=== PATIENT | female | born 1940 | race Hispanic/Latino ===

== ENCOUNTER → 2018-05-20 | Outpatient (CLI) | payer MEDICARE ==
[~2018-05-20] MED LIST: GABA-533 PO; MAGN250T10 PO; MULT1CAP32 PO; POTA-79 PO; VITAMIN D PO
== END | disposition home or self-care (01) ==
LOC: RAH 08:58
PROVIDERS: ATTEND Physical Medicine & Rehabilitation
DX: M85.88 Other specified disorders of bone density and structure, other site (principal); M47.896 Other spondylosis, lumbar region; M43.26 Fusion of spine, lumbar region; M48.061 Spinal stenosis, lumbar region without neurogenic claudication; I11.0 Hypertensive heart disease with heart failure; I50.22 Chronic systolic (congestive) heart failure; E11.9 Type 2 diabetes mellitus without complications; E78.5 Hyperlipidemia, unspecified; I48.0 Paroxysmal atrial fibrillation; I25.10 Atherosclerotic heart disease of native coronary artery without angina pectoris
CPT/HCPCS: 72114

== ENCOUNTER → 2018-09-20 | Outpatient (CLI) | payer MEDICARE ==
[~2018-09-20] MED LIST changes: +GADODIAMIDE 5 MMOL/10 ML VIAL 5 MMOL/10 ML ML IV ONE
== END | disposition home or self-care (01) ==
LOC: RAH 10:00
PROVIDERS: ATTEND Physical Medicine & Rehabilitation
DX: M47.26 Other spondylosis with radiculopathy, lumbar region (principal); M48.061 Spinal stenosis, lumbar region without neurogenic claudication; M51.16 Intervertebral disc disorders with radiculopathy, lumbar region
CPT/HCPCS: 72158; A9579

== ENCOUNTER → 2018-10-08 | Outpatient (CLI) | payer MEDICARE ==
[~2018-10-08] MED LIST changes: -GADODIAMIDE 5 MMOL/10 ML VIAL 5 MMOL/10 ML ML IV ONE
== END | disposition home or self-care (01) ==
LOC: RAH 14:55
PROVIDERS: ATTEND Physical Medicine & Rehabilitation
DX: M25.551 Pain in right hip (principal)
CPT/HCPCS: 73502

== ENCOUNTER → 2019-01-22 | Outpatient (CLI) | payer MEDICARE | END | disposition home or self-care (01) | LOC: RAH 14:18 | PROVIDERS: ATTEND Internal Medicine | DX: R10.2 Pelvic and perineal pain (principal); Z90.710 Acquired absence of both cervix and uterus | CPT/HCPCS: 76856 ==

== ENCOUNTER → 2019-06-30 | Outpatient (CLI) | payer MEDICARE | END | disposition home or self-care (01) | LOC: RAH 13:20 | PROVIDERS: ATTEND Physical Medicine & Rehabilitation | DX: M48.061 Spinal stenosis, lumbar region without neurogenic claudication (principal); M47.26 Other spondylosis with radiculopathy, lumbar region | CPT/HCPCS: 72131 ==

== ENCOUNTER → 2020-05-04 | Outpatient (CLI) | payer MEDICARE | END | disposition home or self-care (01) | LOC: RAH 12:44 | PROVIDERS: ATTEND Physical Medicine & Rehabilitation | DX: M25.871 Other specified joint disorders, right ankle and foot (principal); M25.471 Effusion, right ankle | CPT/HCPCS: 73721 ==

== ENCOUNTER → 2021-03-11 | Outpatient (CLI) | payer MEDICARE | END | disposition home or self-care (01) | LOC: RAH 12:02 | PROVIDERS: ATTEND Physical Medicine & Rehabilitation | DX: M20.12 Hallux valgus (acquired), left foot (principal); M85.872 Other specified disorders of bone density and structure, left ankle and foot | CPT/HCPCS: 73630 ==

== ENCOUNTER → 2021-03-16 | Outpatient (CLI) | payer MEDICARE | END | disposition home or self-care (01) | LOC: RAH 03-15 12:26 | PROVIDERS: ATTEND Internal Medicine | DX: M16.12 Unilateral primary osteoarthritis, left hip (principal); M25.559 Pain in unspecified hip; M85.88 Other specified disorders of bone density and structure, other site; Z98.890 Other specified postprocedural states | CPT/HCPCS: 73502 ==

== ENCOUNTER → 2021-03-28 | Outpatient (CLI) | payer MEDICARE | END | disposition home or self-care (01) | LOC: RAH 09:01 | PROVIDERS: ATTEND Internal Medicine | DX: S83.241A Other tear of medial meniscus, current injury, right knee, initial encounter (principal); S83.207A Unspecified tear of unspecified meniscus, current injury, left knee, initial encounter; M23.92 Unspecified internal derangement of left knee; M17.11 Unilateral primary osteoarthritis, right knee; X58.XXXA Exposure to other specified factors, initial encounter; Y93.89 Activity, other specified; Y92.89 Other specified places as the place of occurrence of the external cause; Y99.8 Other external cause status | CPT/HCPCS: 73721 ==

== ENCOUNTER → 2021-08-02 | Outpatient (CLI) | payer MEDICARE ==
[~2021-08-02] MED LIST changes: +GADOTERATE MEGLUMINE 10 MMOL/20 ML VIAL IV ONE
== END | disposition home or self-care (01) ==
LOC: RAH 08:41
PROVIDERS: ATTEND Physical Medicine & Rehabilitation
DX: S86.302A Unspecified injury of muscle(s) and tendon(s) of peroneal muscle group at lower leg level, left leg, initial encounter (principal); M79.89 Other specified soft tissue disorders; M89.8X6 Other specified disorders of bone, lower leg; M85.662 Other cyst of bone, left lower leg; Z88.6 Allergy status to analgesic agent; Z88.8 Allergy status to other drugs, medicaments and biological substances; X58.XXXA Exposure to other specified factors, initial encounter; Y93.89 Activity, other specified; Y92.89 Other specified places as the place of occurrence of the external cause; Y99.8 Other external cause status
CPT/HCPCS: 73720; A9575

== ENCOUNTER → 2022-01-12 | Outpatient (CLI) | payer MEDICARE ==
[~2022-01-12] MED LIST changes: -GADOTERATE MEGLUMINE 10 MMOL/20 ML VIAL IV ONE
== END | disposition home or self-care (01) ==
LOC: RAH 14:24
PROVIDERS: ATTEND Internal Medicine
DX: E03.8 Other specified hypothyroidism (principal); E03.9 Hypothyroidism, unspecified; E04.1 Nontoxic single thyroid nodule
CPT/HCPCS: 76536

== ENCOUNTER → 2023-02-09 | Outpatient (CLI) | payer MEDICARE ==
[~2023-02-09] MED LIST changes: +POTA-364 PO; -POTA-79 PO
[2023-02-09 09:36] LABS: BASOPHILS % (AUTO) 1.1 % (0.0-5.0); EOSINOPHILS % (AUTO) 2.9 % (0.0-8.0); HEMATOCRIT 43.4 % (36-48); LYMPHOCYTES % (AUTO) 24.5 % (21.0-51.0); MEAN CORPUSCULAR HEMOGLOBIN 30.3 pg (27.0-33.0); MEAN CORPUSCULAR VOLUME 94.6 fL (79-99); MONOCYTES % (AUTO) 9.1 % (3.0-13.0); NEUTROPHILS % (AUTO) 62.1 % (40.0-77.0); PLATELET COUNT (AUTO) 266 K/uL (130-400); RED BLOOD CELL COUNT(AUTO) 4.59 MIL/uL (4.00-5.50); RED CELL DISTRIBUTION WIDTH 13.6 % (11.0-15.5); WHITE BLOOD COUNT (AUTO) 6.2 K/uL (4.8-10.8)
[2023-02-09 10:00] LABS: ALANINE AMINOTRANSFERASE 28 U/L (12-78); ALBUMIN 3.7 g/dL (3.5-5.0); ASPARTATE AMINOTRANSFERASE 17 U/L (10-37); CARBON DIOXIDE 29 mmol/L (21-32); CHLORIDE 103 mmol/L (101-111); CREATININE 0.8 mg/dL (0.5-1.5); CRP QUANTITATIVE < 2.00 mg/L (0.00-9.0); GLOMERULAR FILTR. RATE CALC 73 mL/min (>90); GLUCOSE,RANDOM 104 mg/dL (70-105); POTASSIUM 3.8 mmol/L (3.5-5.1); SODIUM SERUM 140 mmol/L (136-145); UREA NITROGEN, BLOOD 11 mg/dL (7-18)
== END | disposition home or self-care (01) ==
LOC: LAB 08:50
PROVIDERS: ATTEND Internal Medicine Gastroenterology
DX: R10.32 Left lower quadrant pain (principal); K76.0 Fatty (change of) liver, not elsewhere classified
CPT/HCPCS: 36415; 80053; 82270; 82272; 85025; 86140

== ENCOUNTER → 2023-02-15 | Outpatient (CLI) | payer MEDICARE ==
[~2023-02-15] MED LIST changes: +IOHEXOL 350 MG/ML 100ML INFUS..BTL IV ONE
== END | disposition home or self-care (01) ==
LOC: RAH 09:16
PROVIDERS: ATTEND Internal Medicine Gastroenterology
DX: K57.30 Diverticulosis of large intestine without perforation or abscess without bleeding (principal); R10.32 Left lower quadrant pain; Z90.49 Acquired absence of other specified parts of digestive tract
CPT/HCPCS: 74178; Q9967

== ENCOUNTER → 2023-08-01 | Outpatient (CLI) | payer MEDICARE ==
[~2023-08-01] MED LIST changes: -GABA-533 PO; +GABA-534 PO; -IOHEXOL 350 MG/ML 100ML INFUS..BTL IV ONE
== END | disposition home or self-care (01) ==
LOC: RAH 11:08
PROVIDERS: ATTEND Physician Assistant
DX: M25.512 Pain in left shoulder (principal)
CPT/HCPCS: 73030

== ENCOUNTER → 2024-06-30 | Outpatient (CLI) | payer MEDICARE ==
--- NOTE | 2024-06-30 12:02 | HMCIMG ---
THORACIC SPINE 2VWS REASON: THORACIC BACK PAIN COMPARISON: None. TECHNIQUE: 2 images were obtained. FINDINGS: There are normal appearing vertebral bodies. Interspace heights are well preserved. There are no visible fractures. Soft tissues appear unremarkable. IMPRESSION: 1. Normal views of the thoracic spine.
--- NOTE | 2024-06-30 12:06 | HMCIMG ---
EXAM: LUMBAR SPINE 2-3VWS REASON: LUMBAR BACK PAIN. COMPARISON: 09/30/2020 TECHNIQUE: 3 views of the lumbar spine were obtained. FINDINGS: There are bilateral pedicle screws at L4 and L5, hardware appears intact. Alignment at this level is unremarkable. There is interspace narrowing at L2-3. This is new since prior exam. There is extensive endplate sclerosis inferior L2 and superior L3. This probably represents acute disc degeneration. Osteomyelitis and discitis however could also cause these findings. An MRI scan is recommended for further evaluation of the L2-3 disc interspace. There is moderate narrowing at L1-2 but without the endplate sclerosis. Alignment shows anterior subluxation of L4 on L5, unchanged, and the alignment is otherwise unremarkable. Soft tissues appear unremarkable. IMPRESSION: 1. Postop changes L4-5 with some anterior subluxation L4 on L5, unchanged. 2. Interval development of moderate interspace narrowing at L to 3, there is extensive endplate sclerosis, these findings probably reflect acute disc degeneration but osteomyelitis and discitis also possible, MRI with contrast recommended for further evaluation.
== END | disposition home or self-care (01) ==
LOC: RAH 11:05
PROVIDERS: ATTEND Internal Medicine
DX: S33.140A Subluxation of L4/L5 lumbar vertebra, initial encounter (principal); M48.061 Spinal stenosis, lumbar region without neurogenic claudication; M54.50 Low back pain, unspecified; M54.6 Pain in thoracic spine; I35.0 Nonrheumatic aortic (valve) stenosis; X58.XXXA Exposure to other specified factors, initial encounter; Y93.89 Activity, other specified; Y92.89 Other specified places as the place of occurrence of the external cause; Y99.8 Other external cause status
CPT/HCPCS: 72070; 72100

== ENCOUNTER → 2024-09-01 | Outpatient (CLI) | payer MEDICARE ==
[2024-09-01 11:26] LABS: CREATININE 0.8 mg/dL (0.5-1.0)
== END | disposition home or self-care (01) ==
LOC: LAB 10:16
PROVIDERS: ATTEND Physical Medicine & Rehabilitation
DX: Z01.812 Encounter for preprocedural laboratory examination (principal)
CPT/HCPCS: 36415; 82565; 84520

== ENCOUNTER → 2024-09-04 | Outpatient (CLI) | payer MEDICARE ==
[~2024-09-04] MED LIST changes: +GADOTERATE MEGLUMINE 10 MMOL/20 ML VIAL IV ONE
--- NOTE | 2024-09-04 15:02 | HMCIMG ---
MR SPINAL CANAL, LUMB W/WO CON REASON: RADICULOPATHY LUMBAR COMPARISON: None TECHNIQUE: Routine lumbar imaging protocol was performed. Images were also obtained pre and post gadolinium contrast infusion, 19 cc Clariscan IV. FINDINGS: There are bilateral pedicle screws at L4-5 and L5-S1. There is severe interspace narrowing at L2-3. There is diffuse reaction in the soft tissues around the disc interspace. There is extensive inflammation in the soft tissues around the posterior elements, in the paraspinous musculature. This is evidenced by increased signal on T2 as well as extensive abnormal contrast enhancement. These findings suggest the possible infection rather than inflammation, most pronounced in the posterior elements but present in the disc interspace and in the osseous marrow in place as well. There is mild narrowing of the thecal sac at this level, AP diameter 7 to 8 mm. There is a small amount of fluid beneath the annulus posteriorly at this level which could represent a small abscess. Remaining interspaces are narrowed but otherwise unremarkable, there are no other areas of abnormal contrast enhancement. Spinal canal is otherwise widely patent. Alignment and there are no compression or other fractures. IMPRESSION: 1. Interval development of severe interspace narrowing at L2-3 compared to prior study 09/20/2018, there is osseous marrow edema and abnormal enhancement, there is also extensive abnormal contrast enhancement around the spinous process and lateral processes. 2. These findings appear consistent with osteomyelitis, both of the disc interspace and the posterior elements, there is a small amount of fluid visible posteriorly beneath the disc annulus which could be a minimal abscess. 3. There is mild narrowing of the thecal sac at this level, AP diameter between 7 and 8 mm. 4. There are postoperative changes elsewhere, there are no other areas of abnormal contrast enhancement, there are no other areas of spinal canal narrowing.
== END | disposition home or self-care (01) ==
LOC: RAH 12:49
PROVIDERS: ATTEND Physical Medicine & Rehabilitation
DX: M48.061 Spinal stenosis, lumbar region without neurogenic claudication (principal); M54.16 Radiculopathy, lumbar region; R60.9 Edema, unspecified
CPT/HCPCS: 72158; A9575

== ENCOUNTER → 2024-10-15 | Outpatient (CLI) | payer MEDICARE ==
[~2024-10-15] MED LIST changes: -GADOTERATE MEGLUMINE 10 MMOL/20 ML VIAL IV ONE
--- NOTE | 2024-10-15 11:10 | HMCIMG ---
CERV SPINE 4-5 VWS REASON: CERVICALGIA. COMPARISON: None TECHNIQUE: 5 images of cervical spine were obtained including flexion and extension views. FINDINGS: There are mild degenerative changes with cervical spine spondylosis. No evidence of fracture or dislocation is seen. Anterior osteophytes are seen. IMPRESSION: Findings at described above. Bony osteopenia is seen.
--- NOTE | 2024-10-15 11:11 | HMCIMG ---
SHOULDER COMP 2+VWS LT HISTORY: Left shoulder pain COMPARISON: None TECHNIQUE: 2 images of left shoulder were obtained. FINDINGS: There is no acute displaced fracture or dislocation. Degenerative changes are seen. IMPRESSION: 1. Findings as described above.
== END | disposition home or self-care (01) ==
LOC: RAH 10:14
PROVIDERS: ATTEND Physical Medicine & Rehabilitation
DX: M47.812 Spondylosis without myelopathy or radiculopathy, cervical region (principal); M19.012 Primary osteoarthritis, left shoulder; M54.2 Cervicalgia; M25.512 Pain in left shoulder; M25.78 Osteophyte, vertebrae; M85.88 Other specified disorders of bone density and structure, other site
CPT/HCPCS: 72050; 73030